=== PATIENT | female | born 1970 | race African-American/Black ===

== ENCOUNTER 2019-07-17 14:56 | Emergency (ER) | payer MEDICAID, OTHER ==
[~2019-07-17] VITALS: Ht 154.9 cm; Wt 115.0 kg
[2019-07-17 14:59] VITALS: BP 122/92
[2019-07-17] MEDS ORDERED: PREDNISONE 20MG TABLET PO ONE (15:45)
[2019-07-17] MEDS ORDERED: ALBUTEROL 6.7GM HFA INHALER ORI ONE ×2 (15:45→16:30)
== END 2019-07-17 17:42 | disposition home or self-care (01) ==
LOC: ER 14:56
DX: J45.909 Unspecified asthma, uncomplicated (principal); Z03.818 Encounter for observation for suspected exposure to other biological agents ruled out
CPT/HCPCS: 71045; 99284; J7512; U0003; Z7610

== ENCOUNTER 2019-08-21 11:57 | Emergency (ER) | payer OTHER ==
[~2019-08-21] VITALS: Ht 160 cm; Wt 104.0 kg
[2019-08-21] MEDS ORDERED: IBUPROFEN 800MG TABLET PO ONE (13:45)
[2019-08-21 14:44] VITALS: BP 133/81
== END 2019-08-21 14:48 | disposition home or self-care (01) ==
LOC: ER 12:06
DX: S30.0XXA Contusion of lower back and pelvis, initial encounter (principal); J45.909 Unspecified asthma, uncomplicated; Z90.710 Acquired absence of both cervix and uterus; W01.0XXA Fall on same level from slipping, tripping and stumbling without subsequent striking against object, initial encounter; Y93.89 Activity, other specified; Y92.512 Supermarket, store or market as the place of occurrence of the external cause
CPT/HCPCS: 72070; 81025; 99283

== ENCOUNTER 2020-02-15 17:10 | Emergency (ER) | payer MEDICAID, OTHER ==
[~2020-02-15] VITALS: Ht 154.9 cm; Wt 109.0 kg
[2020-02-15 17:55] VITALS: BP 144/102
[2020-02-15] MEDS ORDERED: VISCOUS LIDOCAINE 2% 15 ML UDC PO STA (17:59)
[2020-02-15] MEDS ORDERED: MAGNESIUM/ALUMINUM HYDROXIDE/SIMETHICONE 30ML UDC PO STA (17:59)
== END 2020-02-15 19:25 | disposition home or self-care (01) ==
LOC: ER 17:10
DX: B00.9 Herpesviral infection, unspecified (principal); J45.909 Unspecified asthma, uncomplicated; Z90.710 Acquired absence of both cervix and uterus
CPT/HCPCS: 99283

== ENCOUNTER 2022-10-22 00:13 | Emergency (ER) | payer OTHER ==
[~2022-10-22] VITALS: Ht 157.5 cm; Wt 120.0 kg
[2022-10-22 00:17] VITALS: O2SAT 98
[2022-10-22] MEDS ORDERED: ACETAMINOPHEN 325MG TABLET PO STA (00:17)
[2022-10-22 00:42] LABS: BASOPHILS % 0.4 % (0.0-2.0); EOSINOPHILS % 0.1 % (0.0-5.0); HEMATOCRIT. 43.3 % (36.0-48.0); HEMOGLOBIN. 14.5 g/dL (12.0-16.0); LYMPHOCYTES % 7.7 % (20.0-50.0); MEAN CORPUSCULAR HEMOGLOBIN 28.4 pg (28.0-32.0); MEAN CORPUSCULAR HGB CONC 33.6 g/dL (31.0-37.0); MEAN CORPUSCULAR VOLUME 84.7 fL (81.0-99.0); MEAN PLATELET VOLUME 8.4 fl (7.4-10.4); MONOCYTES % 10.9 % (2.0-8.0); NEUTROPHILS % 80.9 % (40.0-76.0); PLATELET 290 x1000/uL (130-400); RED BLOOD CELL COUNT 5.11 mill/uL (4.2-5.4); RED CELL DISTRIBUTION WIDTH 15.4 % (11.6-14.6)
[2022-10-22 00:51] LABS: PROTHROMBIN TIME 11.1 sec (9.6-11.0)
[2022-10-22 00:58] LABS: CHLORIDE 106 mEq/L (98-107); INDEX HEMOLYSI 1 (1-3); INDEX ICTERIC 1 (1-4); INDEX LIPEMIC 1 (1-3); POTASSIUM 3.4 mEq/L (3.5-5.1); SODIUM 136 mEq/L (136-145)
[2022-10-22 01:07] LABS: ALANINE AMINOTRANSFERASE 14 IU/L (13-61); ALBUMIN 3.9 g/dL (3.4-5.0); ASPARTATE AMINOTRANSFERASE 10 IU/L (15-37); BILIRUBIN TOTAL 0.3 mg/dL (0.1-1.0); CALCIUM 9.2 mg/dL (8.5-10.1); CARBON DIOXIDE 23 mEq/L (21-32); CREATININE 0.7 mg/dL (0.6-1.3); GLUCOSE 108 mg/dL (70-105); PROTEIN TOTAL 7.9 g/dL (6.0-8.3); UREA NITROGEN BLOOD 6 mg/dL (7-21)
[2022-10-22 01:29] LABS: HCG SCREEN NEGATIVE
[2022-10-22] MEDS ORDERED: ACETAMINOPHEN 325MG TABLET PO NR (02:00)
[2022-10-22 06:02] LABS: CLARITY URINE CLEAR (CLEAR); COLOR URINE DARK YELLOW (YELLOW); GLUCOSE URINE NEGATIVE (NEGATIVE); KETONES URINE 1+ (NEGATIVE); LEUKOCYTE ESTERASE URINE NEGATIVE (NEGATIVE); NITRITE URINE NEGATIVE (NEGATIVE); OCCULT BLOOD URINE NEGATIVE (NEGATIVE); PROTEIN URINE NEGATIVE (NEGATIVE); SPECIFIC GRAVITY URINE 1.011 (1.005-1.030)
[2022-10-22 06:12] LABS: *AMPHETAMINES SCREEN URINE NEGATIVE (NEGATIVE); *BARBITURATES SCREEN URINE NEGATIVE (NEGATIVE); *BENZODIAZEPINES SCREEN URINE NEGATIVE (NEGATIVE); *COCAINE SCREEN URINE PRESUMTIVE POSITIVE (NEGATIVE); CANNABINOID URINE SCREEN PRESUMTIVE POSITIVE (NEGATIVE); ECSTASY MDMA SCREEN URINE NEGATIVE (NEGATIVE); METHADONE URINE SCREEN NEGATIVE (NEGATIVE); OPIATES URINE SCREEN PRESUMTIVE POSITIVE (NEGATIVE); PHENCYCLIDINE URINE SCREEN NEGATIVE (NEGATIVE)
[2022-10-22 14:00] VITALS: BP 92/58; PULSE 66; RESP 18; TEMP 97.8
== END 2022-10-22 14:38 | disposition short-term general hospital (02) ==
LOC: ER 00:26
DX: R10.9 Unspecified abdominal pain (principal); F14.90 Cocaine use, unspecified, uncomplicated; I10 Essential (primary) hypertension; J45.909 Unspecified asthma, uncomplicated; Z00.00 Encounter for general adult medical examination without abnormal findings
CPT/HCPCS: 80053; 80305; 81003; 84703; 83605; 83690; 85025; 85610; 36415; 74176; 76705; 99285; Z7610 ×3; C1893